=== PATIENT | male | born 1995 | race Caucasian/White ===

== ENCOUNTER 2018-02-07 18:34 | Emergency (ER) | payer OTHER ==
[2018-02-07 19:13] VITALS: BP 127/78
--- NOTE | 2018-02-07 19:26 | UC ---
Throat Pain/Nasal Raad HPI - HPI Summary HPI Summary: 23 yo male presents with intermittently productive cough, sinus pain/pressure/ congestion, headache, and hoarseness. His symptoms have been progressing over the last 2 weeks. Had his flu shot a couple days ago. Has been taking OTC cold medicine with no relief. Denies fever, chills, SOB, chest pain, hemoptysis, abdominal pain, n/v. - History of Current Complaint Chief Complaint: UCGeneralIllness Stated Complaint: URI Time Seen by Provider: 02/07/18 19:26 Hx Obtained From: Patient Onset/Duration: Gradual Onset Pain Intensity: 0 Cough: Nonproductive - Allergies/Home Medications Allergies/Adverse Reactions: Allergies Allergy/AdvReac Type Severity Reaction Status Date / Time No Known Allergies Allergy Verified 02/07/18 19:13 PMH/Surg Hx/FS Hx/Imm Hx - Additional Past Medical History Additional PMH: None - Surgical History Surgical History: None Surgery Procedure, Year, and Place: YOUNG CHILD TONSILS , - Family History Known Family History: Positive: Other - mother thyroid - Social History Occupation: Student Lives: Dormitory/Roommates Alcohol Use: Occasionally Substance Use Type: None Smoking Status (MU): Never Smoked Tobacco Have You Smoked in the Last Year: No Review of Systems Constitutional: Negative Skin: Negative Eyes: Negative ENT: Nasal Discharge, Sinus Congestion, Sinus Pain/Tenderness Respiratory: Cough Cardiovascular: Negative Gastrointestinal: Negative Neurovascular: Negative Neurological: Negative Psychological: Negative All Other Systems Reviewed And Are Negative: Yes Physical Exam - Summary Physical Exam Summary: GENERAL: NAD. WDWN. Mildly ill appearing. SKIN: No rashes, sores, lesions, or open wounds. HEENT: Head: AT/NC Eyes: EOM intact. Conjunctiva clear without inflammation or discharge. Ears: Hearing grossly normal. TMs intact, no bulging, erythema, or edema. Nose: Nasal mucosa moderately swollen and erythematous with yellow discharge. TTP maxillary and frontal sinus. Throat: Posterior oropharynx without exudates, erythema, or tonsillar enlargement. Uvula midline. NECK: Supple. Nontender. No lymphadenopathy. CHEST: CTAB. No r/r/w. No accessory muscle use. Breathing comfortably and in no distress. CV: RRR. Without m/r/g. Pulses intact. NEURO: Alert. PSYCH: Age appropriate behavior. Triage Information Reviewed: Yes Vital Signs: Initial Vital Signs Temp 97.5 F 02/07/18 19:09 Pulse 102 02/07/18 19:09 Resp 20 02/07/18 19:09 BP 127/78 02/07/18 19:09 Pulse Ox 100 02/07/18 19:09 Vital Signs Reviewed: Yes Throat Pain/Nasal Course/Dx - Course Course Of Treatment: Sinusitis - Differential Dx/Diagnosis Provider Diagnoses: Sinusitis Discharge - Sign-Out/Discharge Documenting (check all that apply): Patient Departure All imaging exams completed and their final reports reviewed: No Studies - Discharge Plan Condition: Stable Disposition: HOME Prescriptions: Amoxicillin/Clavulanate TAB* [Augmentin TAB 875*] 875 mg PO BID #20 tab Patient Education Materials: Sinusitis (ED) Referrals: Karis Huerta MD [Primary Care Provider] - Additional Instructions: If you develop a fever, shortness of breath, chest pain, new or worsening symptoms - please call your PCP or go to the ED. - Billing Disposition and Condition Condition: STABLE Disposition: Home - Attestation Statements Provider Attestation: I was available for consult. This patient was seen by the JULES. The patient was not presented to, seen by, or examined by me. -Eugene
== END 2018-02-07 19:55 | disposition home or self-care (01) ==
LOC: UCEAST 18:34
DX: J32.9 Chronic sinusitis, unspecified (principal)
CPT/HCPCS: 99212; G0463

== ENCOUNTER 2018-02-09 12:02 | Emergency (ER) | payer OTHER ==
[2018-02-09] MEDS ORDERED: methylPREDNISolone 125 MG* 2 ML VIAL IV ONE (12:33)
[2018-02-09 13:42] VITALS: BP 127/56
--- NOTE | 2018-02-09 16:47 | ED ---
Allergic Reaction/Systemic - HPI Summary HPI Summary: Patient is a 23-year-old male who presents emergency department status post anaphylactic reaction to amoxicillin. Patient was seen at [facility] care 2 days ago and placed on amoxicillin for sinusitis. Patient has been having sinus symptoms for about 3 weeks. Patient states he woke up this morning and had an itching rash, felt short of breath and like his throat was closing. [facility] and received subcutaneous epinephrine and 50 mg of Benadryl. Symptoms improved and he was sent to the emergency department for evaluation. In the ER patient states he is feeling much better. He states his itching, rash and difficulty breathing has decided. Patient's only complaint is fatigue and a raspy voice. Patient has no past medical history. He states he's never had an allergic reaction before. Symptoms are moderate in severity. No current modifying factors. - History of Current Complaint Chief Complaint: EDAllergicReaction Time Seen by Provider: 02/09/18 12:19 Hx Obtained From: Patient Pain Intensity: 0 Pain Scale Used: 0-10 Numeric - Allergies/Home Medications Allergies/Adverse Reactions: Allergies Allergy/AdvReac Type Severity Reaction Status Date / Time amoxicillin Allergy Hives Verified 02/09/18 12:40 PMH/Surg Hx/FS Hx/Imm Hx Previously Healthy: Yes Endocrine/Hematology History: Denies: Hx Diabetes Cardiovascular History: Denies: Hx Hypertension, Hx Pacemaker/ICD History: Denies: Hx Renal Disease Sensory History: Denies: Hx Hearing Aid Psychiatric History: Denies: Hx Panic Disorder - Surgical History Surgery Procedure, Year, and Place: YOUNG CHILD TONSILS , Hx Anesthesia Reactions: No - Immunization History Date of Tetanus Vaccine: < 10 years Immunizations Up to Date: Yes Infectious Disease History: No Infectious Disease History: Denies: Traveled Outside the [place] in Last 30 Days - Family History Known Family History: Positive: Other - mother thyroid - Social History Occupation: Student Lives: Dormitory/Roommates Alcohol Use: Occasionally Hx Substance Use: No Substance Use Type: Reports: None Hx Tobacco Use: No Smoking Status (MU): Never Smoked Tobacco Have You Smoked in the Last Year: No Review of Systems Eyes: Negative ENT: Other - sinus congestion Cardiovascular: Negative Respiratory: Negative Gastrointestinal: Negative Musculoskeletal: Negative Skin: Negative Positive: Weakness - generalized All Other Systems Reviewed And Are Negative: Yes Physical Exam Triage Information Reviewed: Yes Vital Signs On Initial Exam: Initial Vitals Temp Pulse Resp BP Pulse Ox 98.1 F 88 16 107/72 99 02/09/18 12:29 02/09/18 12:29 02/09/18 12:29 02/09/18 12:29 02/09/18 12:29 Vital Signs Reviewed: Yes Appearance: Positive: Well-Appearing - Patient sitting in chair in no acute distress. Breathing easily on room air. senior trainer present. Skin: Positive: Warm, Dry Head/Face: Positive: Normal Head/Face Inspection Eyes: Positive: Normal ENT: Positive: Normal ENT inspection, Other - Oropharynx patent without uvular edema. No facial or mouth swelling. Neck: Positive: Supple Respiratory/Lung Sounds: Positive: Clear to Auscultation, Breath Sounds Present. Negative: Wheezes Cardiovascular: Positive: Normal, RRR Neurological: Positive: Normal, CN Intact II-III Psychiatric: Positive: Affect/Mood Appropriate Diagnostics - Vital Signs Vital Signs Temp Pulse Resp BP Pulse Ox 02/09/18 13:40 97.9 F 70 16 127/56 100 02/09/18 13:00 74 16 122/51 100 02/09/18 12:47 72 16 125/46 100 02/09/18 12:29 98.1 F 88 16 107/72 99 - Laboratory Lab Statement: Any lab studies that have been ordered have been reviewed, and results considered in the medical decision making process. Allergic Reaction Course/Dx - Course Course Of Treatment: Presenting to the emergency department after receiving epinephrine for an allergic reaction to amoxicillin. In the emergency department he is well-appearing and his symptoms have mostly resolved. His only complaint is generlized fatigue and mild raspy voice. He was given a dose of IV Solu-Medrol. Oxygen saturation is 100% room air which is normal. Case was discussed with Dr. Ambrocio. Will dc pt. home. Advised to dc amoxicillin. Will switch to zithromax. Flomax added. Will keep on a few days of prednisone. Benadryl prn. To f.u with [facility] and return to ER if sxs change or worsen. - Diagnoses Differential Diagnosis/HQI/PQRI: Positive: Airway Obstruction, Anaphylaxis, Angioedema, Bronchospasm, Erythema Nodosum, Erythema Multiforme, Local Allergic Reaction, Ruiz-Johnsons Syndrome, Urticaria Provider Diagnoses: Allergic drug reaction Discharge - Sign-Out/Discharge Documenting (check all that apply): Patient Departure - Discharge Plan Condition: Good Disposition: HOME Prescriptions: Azithromyxin LIZABETH (NF) [Z-Lizabeth (Zithromax) 250 mg tabs #6] 2 tab PO .TODAY, THEN 1 DAILY #6 tab Fluticasone NASAL SPRAY 50MCG* [Flonase NASAL SPRAY 50MCG*] 2 spray BOTH NARES DAILY #1 btl predniSONE [Deltasone 20 MG TAB] 20 mg PO DAILY #6 tablet Patient Education Materials: Anaphylaxis (ED), Antibiotic Medication Allergy ( ED) Referrals: [facility] [Outside] Karis Huerta MD [Primary Care Provider] - Additional Instructions: Follow up with [facility] Stop taking amoxicillin Start new medication today Can take benadryl as needed for rash or itching Return to ER if symptoms change or worsen - Billing Disposition and Condition Condition: GOOD Disposition: Home
== END 2018-02-09 13:40 | disposition home or self-care (01) ==
LOC: ED 12:02
DX: R53.83 Other fatigue (principal); R49.0 Dysphonia; T36.0X5A Adverse effect of penicillins, initial encounter; Y92.9 Unspecified place or not applicable; Z88.3 Allergy status to other anti-infective agents
CPT/HCPCS: 96374; 99283; J2930

== ENCOUNTER 2018-08-25 10:16 | Emergency (ER) | payer OTHER ==
[2018-08-25 11:57] VITALS: BP 130/70
--- NOTE | 2018-08-25 12:30 | UC ---
Abdominal Pain Male HPI - HPI Summary HPI Summary: Healthy 23-year-old who recently traveled to the [facility] over spring now complains of frequent diarrhea and some nausea. He states that whenever he he eats. He usually gets diarrhea. He denies fever or blood in the stool or dark stools. He denies abdominal pain. This first occurred approximately 5 days ago and has not resolved. 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 His blood pressure is 130/70. His temperature is 99.4. We tried to get him to give us a stool sample that was unsuccessful. - History of Current Complaint Chief Complaint: UCGeneralIllness Stated Complaint: NAUSEA ABD PAIN DIARRHEA Time Seen by Provider: 08/25/18 12:08 Pain Intensity: 0 - Allergies/Home Medications Allergies/Adverse Reactions: Allergies Allergy/AdvReac Type Severity Reaction Status Date / Time amoxicillin Allergy Hives Verified 02/09/18 12:40 PMH/Surg Hx/FS Hx/Imm Hx - Additional Past Medical History Additional PMH: PMH: shoulder injury Family hx: none significant according to patient. Social hx: [employer] student, wrestler. Previously Healthy: Yes - Surgical History Surgical History: None Surgery Procedure, Year, and Place: YOUNG CHILD TONSILS , - Family History Known Family History: Positive: Other - mother thyroid - Social History Alcohol Use: Occasionally Substance Use Type: None Smoking Status (MU): Never Smoked Tobacco Have You Smoked in the Last Year: No Review of Systems All Other Systems Reviewed And Are Negative: Yes Constitutional: Negative: Fever - did have transient fever 5 days ago Respiratory: Positive: Negative. Negative: Shortness Of Breath Cardiovascular: Positive: Negative. Negative: Palpitations Gastrointestinal: Positive: Negative, Diarrhea, Nausea - mild. Negative: Abdominal Pain, Vomiting Genitourinary: Positive: Negative Is Patient Immunocompromised?: No Physical Exam - Summary Physical Exam Summary: Appearance: The patient is well-appearing, is in no pain or distress, and is well-nourished. Eyes: Conjunctiva are clear. Pupils are equal and reactive to light and accommodation. Extra ocular muscle movement is intact. ENT: The hearing is grossly normal, the pharynx is normal, and the TMs are normal. There is no muffled or hoarse voice. No stridor. Neck: The neck is supple and there is no lymphadenopathy. Respiratory: The chest is nontender to palpation and without crepitus. The lungs are clear, there are normal breath sounds, and there is no respiratory distress. No wheezes, rales or rhonchi. Cardiovascular: Heart sounds reveal a regular rate and rhythm. There are no clicks, rubs or murmurs. There are no carotid bruits or thrills. Circulation is grossly intact. Abdomen: The abdomen is soft and nontender. There is no organomegaly. Bowel sounds are present and hyperactive. No point tenderness at McBurneys point. Musculoskeletal: Strength is intact. The patient moves all extremities. Neurological: The patient is alert. Motor and sensory are examination grossly intact. Speech is normal. Psychological: The patient displays age appropriate behavior Skin: Negative for rashes. Vital Signs: Initial Vital Signs Temp 99.4 F 08/25/18 11:52 Pulse 100 08/25/18 11:52 Resp 18 08/25/18 11:52 BP 130/70 08/25/18 11:52 Pulse Ox 100 08/25/18 11:52 Abd Pain Male Course/Dx - Course Course Of Treatment: Healthy 23-year-old who recently traveled to the [facility] over spring now complains of frequent diarrhea and some nausea. He states that whenever he he eats, he usually gets immediate diarrhea. He denies fever or blood in the stool or dark stools. He denies abdominal pain. This first occurred approximately 5 days ago and has not resolved. 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 His blood pressure is 130/70. His temperature is 99.4. We tried to get him to give us a stool sample that was unsuccessful. Past medical history is noncontributory. The patient's physical exam is unremarkable. There are no peritoneal signs. He does not look dehydrated. I am recommending that the patient give us a stool sample and then begin Cipro for 3 days with the presumptive diagnosis of traveler's diarrhea. However, he states that he won't do that. I told him that he can also take [id number] Imodium. He must follow up in 4 days at [facility]. Medications reviewed. Elevated BP because patient is urgent/emergent. - Differential Dx/Clinical Impression Differential Diagnosis/HQI/PQRI: Other - infectious diarrhea, Traveler's? Provider Diagnosis: Diarrhea of presumed infectious origin Discharge - Sign-Out/Discharge Documenting (check all that apply): Patient Departure All imaging exams completed and their final reports reviewed: No Studies - Discharge Plan Condition: Stable Disposition: HOME Patient Education Materials: Traveler's Diarrhea (ED) Referrals: Karis Huerta MD [Primary Care Provider] - Additional Instructions: WE DISCUSSED: PLEASE SEEK CARE AT THE EMERGENCY DEPARTMENT IF SYMPTOMS WORSEN OR IF NEW SYMPTOMS DEVELOP. FOLLOW UP WITH YOUR PRIMARY CARE PHYSICIAN IF CONDITION CONTINUES BEYOND 3 DAYS WITHOUT IMPROVEMENT. We are open from 7 a.m. to 10 p.m. Call us with any questions or concerns. YOUR DIAGNOSIS IS: Traveler's diarrhea. YOUR PRESCRIPTION RECOMMENDATION IS: cipro 500mg twice a day for 3 days. OTHER INSTRUCTIONS: [facility]-examination. Go to ED if you can't stay hydrated. Rest. Drink dilute 1/1 Gatorade. YOU can also get Immodium, over the counter. Increase your fluid intake. No dairy products. - Billing Disposition and Condition Condition: STABLE Disposition: Home
== END 2018-08-25 13:00 | disposition home or self-care (01) ==
LOC: UCEAST 10:16
DX: R19.7 Diarrhea, unspecified (principal); R11.0 Nausea; R03.0 Elevated blood-pressure reading, without diagnosis of hypertension; Z88.0 Allergy status to penicillin
CPT/HCPCS: 99212; G0463

== ENCOUNTER 2019-02-07 11:55 | Emergency (ER) | payer OTHER ==
[2019-02-07 12:13] VITALS: BP 123/64
--- NOTE | 2019-02-07 13:14 | UC ---
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 Noted fatigue, malaise, nasal congestion, mild throat pain. Denies SOB , chest pain. Sinus pressure improved with mucinex. + fatigue. no ear pain, no throat pain. - History of Current Complaint Chief Complaint: UCGeneralIllness Stated Complaint: SINUS CONGESTION Time Seen by Provider: 02/07/19 12:54 Hx Obtained From: Patient Onset/Duration: Sudden Onset, Lasting Days, Still Present Pain Intensity: 0 Pain Scale Used: 0-10 Numeric Cough: Nonproductive Associated Signs & Symptoms: Positive: Sinus Discomfort, Nasal Discharge, Fever - Allergies/Home Medications Allergies/Adverse Reactions: Allergies Allergy/AdvReac Type Severity Reaction Status Date / Time amoxicillin Allergy Hives Verified 02/07/19 12:13 PMH/Surg Hx/FS Hx/Imm Hx Previously Healthy: Yes - Surgical History Surgical History: None Surgery Procedure, Year, and Place: YOUNG CHILD TONSILS ,. left shoulder surgery 2016 - Family History Known Family History: Positive: Other - mother thyroid, Non-Contributory - Social History Alcohol Use: Occasionally Substance Use Type: None Smoking Status (MU): Never Smoked Tobacco Have You Smoked in the Last Year: No Review of Systems All Other Systems Reviewed And Are Negative: Yes Constitutional: Positive: Fever, Chills, Fatigue ENT: Positive: Sore Throat, Ear Ache, Nasal Discharge, Sinus Congestion, Sinus Pain/Tenderness. Negative: Dental Pain Respiratory: Positive: Cough - minimal. Negative: Shortness Of Breath Musculoskeletal: Positive: Arthralgia Neurological: Positive: Weakness Is Patient Immunocompromised?: No Physical Exam Triage Information Reviewed: Yes Appearance: Well-Appearing, No Pain Distress, Well-Nourished Vital Signs: Initial Vital Signs Temp 98.6 F 02/07/19 12:10 Pulse 76 02/07/19 12:10 Resp 18 02/07/19 12:10 BP 123/64 02/07/19 12:10 Pulse Ox 100 02/07/19 12:10 Vital Signs Reviewed: Yes Eyes: Positive: Conjunctiva Clear ENT: Positive: Pharynx normal, Nasal congestion, TMs normal, Sinus tenderness, Uvula midline. Negative: Pharyngeal erythema, TM bulging, TM dull, TM red, Tonsillar swelling, Tonsillar exudate Neck: Positive: Supple, Nontender, No Lymphadenopathy. Negative: Nuchal Rigidity Respiratory: Positive: Chest non-tender, Lungs clear, Normal breath sounds, No respiratory distress, No accessory muscle use. Negative: Respiratory distress, Crackles, Rhonchi, Stridor, Wheezing Cardiovascular: Positive: RRR Neurological Exam: Normal Skin Exam: Normal Throat Pain/Nasal Course/Dx - Course Course Of Treatment: Sinusitis: - Follow up with [facility] within 2-3 days for repeat evaluation - Go to ER with worsening symptoms, neck pain, fever > 102 - Over the counter medications for symptoms such as Mucinex, NyQuil - Antibiotics as directed. - Increase fluid intake - School/ Sport note given - Differential Dx/Diagnosis Differential Diagnosis/HQI/PQRI: Pharyngitis, Sinusitis, Tonsillitis Provider Diagnosis: Sinusitis Discharge ED - Sign-Out/Discharge Documenting (check all that apply): Patient Departure All imaging exams completed and their final reports reviewed: No Studies - Discharge Plan Condition: Good Disposition: HOME Prescriptions: Azithromyxin LIZABETH (NF) [Z-Lizabeth (Zithromax) 250 mg tabs #6] 2 tab PO .TODAY, THEN 1 DAILY #6 tab Patient Education Materials: Sinusitis (ED) Forms: *School Release Referrals: Karis Huerta MD [Primary Care Provider] - Additional Instructions: - Follow up with [facility] within 2-3 days for repeat evaluation - Go to ER with worsening symptoms, neck pain, fever > 102 - Over the counter medications for symptoms such as Mucinex, NyQuil - Antibiotics as directed. - Increase fluid intake - School/ Sport note given - Billing Disposition and Condition Condition: GOOD Disposition: Home
== END 2019-02-07 13:30 | disposition home or self-care (01) ==
LOC: UCEAST 11:55
DX: J32.9 Chronic sinusitis, unspecified (principal)
CPT/HCPCS: 99212; G0463

== ENCOUNTER 2019-07-05 11:53 | Emergency (ER) | payer OTHER ==
[2019-07-05 12:54] VITALS: BP 131/56
--- NOTE | 2019-07-05 13:24 | UC ---
FLU HPI - HPI Summary HPI Summary: 24 yo male presents with URI symptoms. He tells me that for the last 5 days he has had body aches, fatigue, sore throat, and hoarse voice. He states his symptoms have improved with OTC supportive care and cold medicine. 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 Denies fever, SOB, rash, abdominal pain, n/v. - History of Current Complaint Chief Complaint: UCRespiratory Stated Complaint: FLU LIKE SYMPTOMS Time Seen by Provider: 07/05/19 13:24 Hx Obtained From: Patient Onset/Duration: Gradual Onset Severity Currently: Moderate Severity Initially: Moderate Pain Intensity: 5 Pain Scale Used: 0-10 Numeric - Allergy/Home Medications Allergies/Adverse Reactions: Allergies Allergy/AdvReac Type Severity Reaction Status Date / Time amoxicillin Allergy Hives Verified 07/05/19 12:53 Home Medications: Home Medications Chlorpheniramine/Dextromethorp [Cough-Cold Tablet] 2 tab PO ONCE PRN 07/05/19 [ History Confirmed 07/05/19] Ibuprofen 400 mg PO ONCE PRN 07/05/19 [History Confirmed 07/05/19] PMH/Surg Hx/FS Hx/Imm Hx - Additional Past Medical History Additional PMH: None - Surgical History Surgical History: None Surgery Procedure, Year, and Place: YOUNG CHILD TONSILS ,. left shoulder surgery 2016 - Family History Known Family History: Positive: Other - mother thyroid, Non-Contributory - Social History Occupation: Student Lives: Dormitory/Roommates Alcohol Use: Occasionally Substance Use Type: None Smoking Status (MU): Never Smoked Tobacco Have You Smoked in the Last Year: No Review of Systems All Other Systems Reviewed And Are Negative: No Constitutional: Positive: Fatigue, Other - Body aches Skin: Positive: Negative Eyes: Positive: Negative ENT: Positive: Sore Throat, Sinus Congestion Respiratory: Positive: Negative Cardiovascular: Positive: Negative Gastrointestinal: Positive: Negative Neurological/Mental Status: Positive: Negative Psychological: Positive: Negative Physical Exam - Summary Physical Exam Summary: GENERAL: NAD. WDWN. No pain distress. SKIN: No rashes, sores, lesions, or open wounds. HEENT: Head: AT/NC Eyes: EOM intact. Conjunctiva clear without inflammation or discharge. Ears: Hearing grossly normal. TMs intact, no bulging, erythema, or edema. Nose: Nasal mucosa pink and moist. NTTP maxillary and frontal sinus. Throat: Posterior oropharynx without exudates, erythema, or tonsillar enlargement. Uvula midline. NECK: Supple. Nontender. No lymphadenopathy. CHEST: CTAB. No r/r/w. No accessory muscle use. Breathing comfortably and in no distress. CV: RRR. Pulses intact. Cap refill <2seconds NEURO: Alert. PSYCH: Age appropriate behavior. Triage Information Reviewed: Yes Vital Signs: Initial Vital Signs Temp 98.3 F 07/05/19 12:50 Pulse 73 07/05/19 12:50 Resp 18 07/05/19 12:50 BP 131/56 07/05/19 12:50 Pulse Ox 99 07/05/19 12:50 Lab Results 07/05/19 Range/Units 13:13 Influenza A (Rapid) Negative (Negative) Influenza B (Rapid) Negative (Negative) Vital Signs Reviewed: Yes Flu Course/Dx - Course Course Of Treatment: POC flu negative. Suspect viral illness and pt is improving. Advised to continue OTC supportive care and be rechecked if symptoms do not improve - Differential Dx/Diagnosis Provider Diagnosis: Viral syndrome Discharge ED - Sign-Out/Discharge Documenting (check all that apply): Patient Departure All imaging exams completed and their final reports reviewed: No Studies - Discharge Plan Condition: Stable Disposition: HOME Patient Education Materials: Viral Syndrome (ED) Referrals: Karis Huerta MD [Primary Care Provider] - Additional Instructions: Your symptoms are likely from a viral infection. Viral infections do not respond to antibiotics and are limited to the treatment of symptoms. Viral infections typically run their course in 7-10 days. Drink plenty of fluids, especially if you are running any fever. Use salt water gargles several times a day. Take over the counter acetaminophen (Tylenol) or ibuprofen (Advil, Motrin) according to directions as needed for pain or fever. You may also use Chloraseptic spray or Cepacol lonzenges according to directions which contain a numbing medication and can provide some temporary relief from a sore throat. Return here or follow up with your primary care provider in 7 days if symptoms persist. - Billing Disposition and Condition Condition: STABLE Disposition: Home - Attestation Statements Provider Attestation: I was available for consult. This patient was seen by the JULES. The patient was not presented to, seen by, or examined by me. -Eugene
[2019-07-05 13:25] LABS: Influenza A Molecular Negative (Negative); Influenza B Molecular Negative (Negative)
== END 2019-07-05 13:30 | disposition home or self-care (01) ==
LOC: UCEAST 11:53
DX: B34.9 Viral infection, unspecified (principal); R52 Pain, unspecified; R53.83 Other fatigue; J02.9 Acute pharyngitis, unspecified; R49.0 Dysphonia; R09.81 Nasal congestion; Z88.0 Allergy status to penicillin
CPT/HCPCS: 99211; G0463